=== PATIENT | female | born 1950 | race African-American/Black ===

== ENCOUNTER 2018-11-24 01:56 | Emergency (ER) | payer MEDICARE, OTHER ==
[~2018-11-24] VITALS: Ht 167.6 cm; Wt 75.0 kg
[~2018-11-24 01:56] MED LIST: AMIT10TA6 PO; LISI-618 PO; SIMV80TA91 PO
[2018-11-24] MEDS ORDERED: CETI10TA59 PO (02:08)
[2018-11-24] MEDS ORDERED: METO-558 PO (02:08)
[2018-11-24] MEDS ORDERED: AMLO10TA7 PO (02:08)
[2018-11-24] MEDS ORDERED: KETOROLAC TROMETHAMINE 60 MG/2 ML VIAL IM ONE (04:15)
[2018-11-24 04:40] VITALS: BP 140/84
== END 2018-11-24 04:51 | disposition home or self-care (01) ==
LOC: EMS 01:59
DX: S86.911A Strain of unspecified muscle(s) and tendon(s) at lower leg level, right leg, initial encounter (principal); I10 Essential (primary) hypertension; E78.00 Pure hypercholesterolemia, unspecified; F32.9 Major depressive disorder, single episode, unspecified; Z98.51 Tubal ligation status; Z88.5 Allergy status to narcotic agent; Z79.899 Other long term (current) drug therapy; X58.XXXA Exposure to other specified factors, initial encounter; Y93.89 Activity, other specified; Y92.89 Other specified places as the place of occurrence of the external cause; Y99.8 Other external cause status
CPT/HCPCS: 73564; 96372; 99283; J1885

== ENCOUNTER 2022-03-26 07:17 | Emergency (ER) | payer MEDICARE, OTHER ==
[~2022-03-26] VITALS: Ht 172.7 cm; Wt 63.6 kg
[~2022-03-26 07:17] MED LIST changes: -AMIT10TA6 PO; +AMLO-258 PO; +CETI-450 PO; -LISI-618 PO; +LISI20TA24 PO; +METO-558 PO; -SIMV80TA91 PO
[2022-03-26 07:42] VITALS: BP 136/84
[2022-03-26] MEDS ORDERED: NAPR-1024 PO (09:40)
== END 2022-03-26 10:06 | disposition home or self-care (01) ==
LOC: EMS 07:35
DX: M10.9 Gout, unspecified (principal); F32.A Depression, unspecified; E78.00 Pure hypercholesterolemia, unspecified; I10 Essential (primary) hypertension; Z98.51 Tubal ligation status; Z88.5 Allergy status to narcotic agent
CPT/HCPCS: 99283

== ENCOUNTER 2023-04-17 17:15 | Emergency (ER) | payer OTHER ==
[~2023-04-17] VITALS: Ht 167.6 cm; Wt 69.5 kg
[~2023-04-17 17:15] MED LIST changes: +NAPR-1024 PO
[2023-04-17 17:25] VITALS: BP 170/110; PULSE 62; RESP 16; TEMP 98.3
== END 2023-04-17 18:17 | disposition left against medical advice (07) ==
LOC: EMS 17:17
DX: I10 Essential (primary) hypertension (principal); Z53.21 Procedure and treatment not carried out due to patient leaving prior to being seen by health care provider
CPT/HCPCS: 99281; Z7502

== ENCOUNTER → 2024-01-19 | Emergency (ER) | payer MEDICARE, OTHER ==
[~2024-01-19] VITALS: Ht 167.6 cm; Wt 69.5 kg
[~2024-01-19] MED LIST changes: +METH-659 PO; +METO-325 PO; -METO-558 PO
[2024-01-19 04:56] VITALS: TEMP 97.5
[2024-01-19 05:20] LABS: GLUCOMETER DEV NAME(LOC) ER.7; GLUCOSE,POINT OF CARE 94 MG/DL (70-110)
[2024-01-19 06:06] LABS: APPEARANCE,URINE CLEAR (CLEAR); BILIRUBIN,URINE NEGATIVE (NEGATIVE); COLOR,URINE LIGHT YELLOW (YELLOW); GLUCOSE, URINE (UA) NEGATIVE (NEGATIVE); KETONES,URINE NEGATIVE (NEGATIVE); LEUKOCYTE ESTERASE ,URINE NEGATIVE (NEGATIVE); NITRATE,URINE NEGATIVE (NEGATIVE); OCCULT BLOOD,URINE NEGATIVE (NEGATIVE); PROTEIN,URINE TRACE mg/dL (NEGATIVE); SPECIFIC GRAVITIY, URINE 1.017 (1.003-1.030); UROBILINOGEN,URINE <=1.0 mg/dL (<=1.0)
[2024-01-19] MEDS: METHOCARBAMOL 500 MG TABLET PO ONE (06:33)
[2024-01-19] MEDS: LIDOCAINE 5% TRANSDERMAL PATCH TD ONE (06:33)
[2024-01-19] MEDS: ACETAMINOPHEN 325 MG TABLET PO ONE (06:33)
[2024-01-19 08:20] VITALS: BP 148/88; PULSE 65; RESP 18; O2SAT 98
== END | disposition home or self-care (01) ==
LOC: EMS 04:53
DX: M54.32 Sciatica, left side (principal); I10 Essential (primary) hypertension; E78.5 Hyperlipidemia, unspecified; Z88.5 Allergy status to narcotic agent
CPT/HCPCS: 81003; 82962; 99284